=== PATIENT | male | born 1940 | race Caucasian/White ===

== ENCOUNTER 2021-10-03 13:15 | Emergency (ER) | payer MEDICARE | END 2021-10-03 19:00 | disposition left against medical advice (07) | LOC: ER1 13:15 | DX: S01.01XA Laceration without foreign body of scalp, initial encounter (principal); Z23 Encounter for immunization; M25.551 Pain in right hip; M53.3 Sacrococcygeal disorders, not elsewhere classified; W11.XXXA Fall on and from ladder, initial encounter; Y92.009 Unspecified place in unspecified non-institutional (private) residence as the place of occurrence of the external cause | CPT/HCPCS: 12002; 70450; 90471; 90715; 99283 ==